=== PATIENT | male | born 1950 | race Caucasian/White ===

== ENCOUNTER → 2023-10-16 15:24 | Outpatient (REF) | payer MEDICARE, OTHER, SELFPAY | LOC: HWRAD 15:24 | PROVIDERS: ATTENDING PHYSICIAN Nurse Practitioner Family | DX: R10.9 Unspecified abdominal pain (principal); G89.29 Other chronic pain | CPT/HCPCS: 74176 ==

== ENCOUNTER 2024-06-21 22:38 | Emergency (ER) | payer MEDICARE, OTHER, SELFPAY ==
[2024-06-21 22:53] VITALS: BP 160/100
[2024-06-22 01:48] VITALS: BMI 27.8
[2024-06-22 01:49] VITALS: BP 142/89
[2024-06-22 02:18] LABS: % Basophils 0.2 % (0-2); % Eosinophils 2.9 % (0-6); % Immature Granulocytes 0.5 % (0-0.5); % Lymphocytes 21.3 % (20.5-51.1); % Monocytes 9.6 % (1.7-9.3); % Neutrophils 65.5 % (42.2-75.2); Absolute Eosinophils 0.2 10^3/uL (0-0.7); Absolute Lymphocytes 1.3 10^3/uL (1.2-3.4); Absolute Monocytes 0.6 10^3/uL (0.1-0.6); Absolute Neutrophils 3.9 10^3/uL (1.4-6.5); Hematocrit 38.5 % (39.0-52.0); Hemoglobin 13.3 g/dL (13.0-18.0); Mean Corp Hgb Conc. 34.5 g/dL (33.0-37.0); Mean Corpuscular Hgb 30.9 pg (27.0-31.0); Mean Corpuscular Volume 89.5 fL (80.0-94.0); Mean Platelet Volume 10.4 fL (7.4-10.4); Nucleated Red Blood Cells % 0 % (-); Platelet Count 140 10^3/uL (130-400); Red Cell Dist. Width 13.8 % (11.5-14.5); White Blood Cell Count 5.9 10^3/uL (4.8-10.8)
[2024-06-22 02:22] LABS: APTT 31.3 Sec (23.4-35.0); INR 0.97; PT 13.4 Sec (11.4-14.6)
[2024-06-22 02:26] LABS: ALT (SGPT) 30 U/L (0-50); AST (SGOT) 24 U/L (17-59); Albumin 4.2 g/dl (3.5-5.0); Alkaline Phosphatase 84 U/L (38-126); Blood Urea Nitrogen 20 mg/dl (9-20); Calcium 8.7 mg/dl (8.4-10.2); Carbon Dioxide 26 mmol/L (22-30); Chloride 105 mmol/L (98-107); Estimated Creatinine Clearance 111 ml/min; Glucose 125 mg/dl (70-99); Potassium 4.2 mmol/L (3.5-5.1); Sodium 140 mmol/L (135-145); Total Bilirubin 0.4 mg/dl (0.2-1.3); Total Protein 6.6 g/dl (6.3-8.2); eGFR > 60.00
--- NOTE | 2024-06-22 02:53 | ED.GENMED ---
History of Present Illness
General
Chief Complaint: DVT/Possible Blood Clot
Source: patient and family
Exam Limitations: none
Time Seen by Provider: 06/22/24 01:32
Nursing documentation reviewed up to this point in time: agreed with
History of Present Illness
History of Present Illness:
Pleasant 74-year-old male presents emergency room with right lower leg swelling and pain. Patient concerned for DVT since he just had surgery [facility]. Patient was receiving heparin until discharge. Shortly after discharge, his
swelling increased and his pain worsened. Denies fever, chills, nausea or vomiting. Denies chest pain or any shortness of breath.
Review of Systems
Review of Systems
Allergies reviewed?: Yes
Other source history: family
All Other Systems: ROS reviewed and negative except as documented in HPI and ROS
Constitutional: Reports no symptoms
EENT: Reports no symptoms
Respiratory: Reports no symptoms
Cardiac: Denies chest pain, palpitations or syncope
ABD/GI: Denies abdominal pain
: Denies flank pain
Musculoskeletal: Reports edema
Skin: Reports no symptoms
Neurological: Reports no symptoms
Endocrine: Reports no symptoms
Hematologic/Lymphatic: Reports no symptoms
Psychiatric: Reports anxiety
Phy Exam
General Physical Exam
General Presentation: well appearing and no apparent distress
General Skin: warm and dry
General Habitus: normal
General Mental: alert
General Hydration: appears well hydrated
ENT Exam
ENT Exam: EOMI, pharynx normal, neck supple and normocephalic
Eye Exam
Eye Exam: PERRL, cornea clear and conjunctiva normal
Cardiovascular Exam
Cardiovascular Exam: regular rate/rhythm, no edema, no murmur and normal peripheral pulses
Pulmonary Exam
Pulmonary Exam: lungs clear, no respiratory distress, no rales, no crackles, no rhonchi, no stridor, no wheezing and no cough
Gastrointestinal Exam
Gastrointestinal Exam: normal bowel sounds, non tender, soft, no organomegaly, no pulsatile mass and non distended
Neurological Exam
Neurological Exam: alert, oriented x3, no motor deficits and speech normal
Musculoskeletal Exam
Musculoskeletal Exam: full ROM, edema (Right leg slightly bigger than the left. Good pulses) and neuro vasc intact
Skin Exam
Skin Exam: normal color, warm/dry, no rash and no petechia
Psychiatric Exam
Psychiatric Exam: normal mood/affect
Course
Orders/Labs/Results
Orders:
Orders
06/21/24 22:59
Periph Venous Lwr Ext Rt US [US Periph Venous LOWER Ext RT] Urgent
Comment:
Reason For Exam: RLL SWELLING AND PAIN
06/22/24 02:05
Complete Blood Count/With Diff Urgent
Comprehensive Metabolic Panel Urgent
PTT Urgent
Prothrombin Time Urgent
06/22/24 02:52
Apixaban [Eliquis] 10 mg PO NOW STA
Abnormal Lab Results
06/22/24
02:05
RBC 4.30 L 10^6/uL
(4.70-6.10)
Hct 38.5 L %
(39.0-52.0)
Monocytes % 9.6 H %
(1.7-9.3)
Creatinine 0.5 L mg/dL
(0.7-1.3)
Glucose 125 H mg/dl
(70-99)
06/22/24 02:05
06/22/24 02:05
Vital Signs
Initial and Last Documented VS:
Initial Vital Signs
Temp Pulse Resp BP Pulse Ox
97.8 F 80 18 160/100 97
06/21/24 22:53 06/21/24 22:53 06/21/24 22:53 06/21/24 22:53 06/21/24 22:53
Last Documented Vital Signs
Temp Pulse Resp BP Pulse Ox
98.5 F 73 20 143/91 95
06/22/24 03:22 06/22/24 03:22 06/22/24 03:22 06/22/24 03:22 06/22/24 03:26
*Critical Care Note
Total Time (30-74mins, 75-104mins- exclusive of procedures): Not Applicable
Update Note
Update Note:
US RLE venous
IMPRESSION:
Nonocclusive thrombus within the popliteal vein extending into the paired posterior tibial and peroneal veins
ED Attending Note
-
Portions of this chart may have been created with voice recognition software.� Occasional wrong word or��sound alike� substitutions may have occurred due to the inherent limitations of voice recognition software.
Discharge Plan
Departure
Patient Disposition: Home (Routine Discharge)
Date of Disposition: 06/22/24
Time of Disposition: 02:55
Patient with high blood pressure during this ER visit?: Yes
Discharge Problem:
DVT (deep venous thrombosis)
Instructions: Deep Vein Thrombosis (Blood Clots in the Legs) (DC), BLOOD PRESSURE
Prescriptions:
New
Eliquis 5 mg tablet
10 mg PO DAILY Qty: 30 0RF
Rx Instructions:
Take 10mg BID for 7 days then followed by 5mg BID
Activity Restrictions/Additional Instructions:
Please follow-up with your family doctor as discussed.
It was a pleasure meeting you and taking part in your care. We hope for your continued healing and wellness.
Please read discharge instructions in their entirety. However, they are for general education and may not describe your exact diagnosis at discharge. Information on your ER visit and medical conditions were discussed with you along with appropriate
follow up information...
If indicated, please take your medications as instructed and indicated on discharge paperwork.
Please schedule a follow up appointment as directed. Call to schedule an appointment
Please return to the emergency department with ANY change in, persisting, or worsening of symptoms. If any of your symptoms do not improve, or persist, or become more severe within 6-12 hours, please return to the emergency department for further
care.
Please return to the emergency department if you develop a headache, neck pain/stiffness, fever greater than 100.4F, chest pain, shortness of breath, persistent nausea, vomiting, slurred speech, difficulty walking, numbness/tingling, weakness, signs
of infection or any other symptoms that are worrisome to you.
If you have any questions or concerns please do not hesitate to call the Hospital at or E-mail me directly at [email or web address]
Interventions
Interventions:
*Risk Screen - Suicide Last Done: 06/21/24 22:53
*General Assessment Last Done: 06/22/24 01:47
*Neglect/Abuse Screening Last Done: 06/21/24 22:53
ED- Fall Risk Assessment Last Done: 06/22/24 03:26
*ED COVID-19 Vaccine History Last Done: 06/22/24 01:47
*Nursing Disposition Last Done: 06/22/24 03:26
ED- Cardiac Assessment Last Done: 06/22/24 03:22
ED- Pulmonary Assessment Last Done: 06/22/24 03:22
ED-Peripheral Vascular Assessment Last Done: 06/22/24 03:22
ED-Skin Assessment Last Done: 06/22/24 03:22
Discharge Date and Time
Discharge Date/Time: 06/22/24 03:28
Print Language: FRISIAN
[2024-06-22] MEDS: ELIQUIS 10 MG PO (03:11)
[2024-06-22 03:22] VITALS: BP 143/91
== END 2024-06-22 03:28 | disposition home or self-care (01) ==
LOC: EMR 22:38
PROVIDERS: Emergency Medicine; EMERGENCY PHYSICIAN Student in an Organized Health Care Education/Training Program; FAMILY PHYSICIAN Nurse Practitioner Family
DX: I82.401 Acute embolism and thrombosis of unspecified deep veins of right lower extremity (principal); R22.41 Localized swelling, mass and lump, right lower limb; Z79.01 Long term (current) use of anticoagulants
CPT/HCPCS: 99284; 80053; 85025; 85610; 85730; 93971

== ENCOUNTER 2024-12-04 19:33 | Emergency (ER) | payer OTHER, MEDICARE, SELFPAY ==
[2024-12-04 19:42] VITALS: BP 169/100
[2024-12-04 20:05] LABS: % Basophils 0.1 % (0-2); % Eosinophils 1.6 % (0-6); % Immature Granulocytes 0.3 % (0-0.5); % Lymphocytes 25.1 % (20.5-51.1); % Monocytes 10.6 % (1.7-9.3); % Neutrophils 62.3 % (42.2-75.2); Absolute Eosinophils 0.1 10^3/uL (0-0.7); Absolute Lymphocytes 1.7 10^3/uL (1.2-3.4); Absolute Monocytes 0.7 10^3/uL (0.1-0.6); Absolute Neutrophils 4.2 10^3/uL (1.4-6.5); Hematocrit 44.1 % (39.0-52.0); Hemoglobin 15.4 g/dL (13.0-18.0); Mean Corp Hgb Conc. 34.9 g/dL (33.0-37.0); Mean Corpuscular Hgb 30.6 pg (27.0-31.0); Mean Corpuscular Volume 87.7 fL (80.0-94.0); Mean Platelet Volume 10.9 fL (7.4-10.4); Nucleated Red Blood Cells % 0 % (-); Platelet Count 176 10^3/uL (130-400); Red Blood Cell Count 5.03 10^6/uL (4.70-6.10); Red Cell Dist. Width 14.2 % (11.5-14.5); White Blood Cell Count 6.7 10^3/uL (4.8-10.8)
[2024-12-04 20:17] LABS: ALT (SGPT) 26 U/L (0-50); AST (SGOT) 25 U/L (17-59); Albumin 5.2 g/dl (3.5-5.0); Alkaline Phosphatase 81 U/L (38-126); Blood Urea Nitrogen 20 mg/dl (9-20); Calcium 9.9 mg/dl (8.4-10.2); Carbon Dioxide 24 mmol/L (22-30); Chloride 113 mmol/L (98-107); Glucose 116 mg/dl (70-99); Lipase 114 U/L (23-300); Potassium 4.2 mmol/L (3.5-5.1); Sodium 148 mmol/L (135-145); Total Protein 8.2 g/dl (6.3-8.2); eGFR > 60.00
--- NOTE | 2024-12-04 21:04 | ED.GENMED ---
History of Present Illness
General
Chief Complaint: Abdominal Pain
Source: patient and family
Exam Limitations: none
Time Seen by Provider: 12/04/24 20:52
History of Present Illness
History of Present Illness:
74yoM with a history of glioblastoma (on chemo, cycle recently finished, follows with Jose), hypertension, DVT on Eliquis, and kidney stones presenting with several family members for evaluation of groin pain. Patient reports developing pain in his
right groin several hours ago. He was lifting something heavy prior to his pain starting. He has a history of kidney stones and this feels similar. He denies any difficulty urinating, hematuria, scrotal pain, vomiting, fevers. Patient also has a
history of bilateral hernia repairs 2 years ago.
Phy Exam
General Physical Exam
General Presentation: well appearing and no apparent distress
General Skin: warm and dry
General Habitus: normal
General Mental: alert
ENT Exam
ENT Exam: normocephalic
Pulmonary Exam
Pulmonary Exam: no respiratory distress
Gastrointestinal Exam
Gastrointestinal Exam: soft, non distended, no cva tenderness and other (+Focal tenderness to RLQ. Abdomen soft, non-distended. No rebound or guarding. No palpable hernia.)
Genitourinary Exam Male
Exam Male: normal testicular exam, no testicular swelling and no testicular tenderness
Neurological Exam
Neurological Exam: alert
Abilio Coma Scale
Eye Opening: Spontaneous
Verbal Response: Oriented
Motor Response: Obeys Commands
GCS Total Score: 15
Skin Exam
Skin Exam: normal color and warm/dry
Psychiatric Exam
Psychiatric Exam: normal mood/affect
Course
Orders/Labs/Results
Orders:
Orders
12/04/24 19:45
IV Insert/Care/Rem.- Treatment PRN
12/04/24 19:53
Complete Blood Count/With Diff Urgent
Comprehensive Metabolic Panel Urgent
Lipase Urgent
12/04/24 21:03
CT Abd/pelvis W Iv Cont Urgent
Comment:
Reason For Exam: RLQ pain/R groin pain
0.9% Sodium Chloride 1000 ml [Nss] 1,000 ml IV BOLUS
HYDROmorphone [Dilaudid] 0.5 mg IV NOW STA
12/04/24 21:12
Ondansetron Injectable [Zofran] 4 mg .ROUTE .STK-MED ONE
12/04/24 21:13
Ondansetron Injectable [Zofran] 4 mg IV NOW STA
12/04/24 23:06
Urinalysis Reflex To Culture Urgent
Date Specimen was Collected: 12/04/24
Time Specimen was Collected: 19:45
Urine Microscopic Reflex Cult Urgent
12/04/24 23:09
Tamsulosin [Flomax] 0.4 mg PO NOW STA
Abnormal Lab Results
12/04/24 12/04/24
19:53 23:06
MPV 10.9 H fL
(7.4-10.4)
Absolute Monos (auto) 0.7 H 10^3/uL
(0.1-0.6)
Monocytes % 10.6 H %
(1.7-9.3)
Sodium 148 H mmol/L
(135-145)
Chloride 113 H mmol/L
(98-107)
Glucose 116 H mg/dl
(70-99)
Albumin 5.2 H g/dl
(3.5-5.0)
Ur Occult Blood Reflex 3+ A
(Negative)
Urine RBC 3-6 A /HPF
(0-2)
Urine Bacteria (Reflex) Few A
(Negative)
12/04/24 19:53
12/04/24 19:53
Vital Signs
Initial and Last Documented VS:
Initial Vital Signs
Temp Pulse Resp BP Pulse Ox
98.1 F 78 19 169/100 96
12/04/24 19:42 12/04/24 19:42 12/04/24 19:42 12/04/24 19:42 12/04/24 19:42
Last Documented Vital Signs
Temp Pulse Resp BP Pulse Ox
98.1 F 75 16 146/93 95
12/04/24 19:42 12/04/24 23:34 12/04/24 23:34 12/04/24 23:34 12/04/24 23:34
MDM/Problems Addressed
Differential Diagnosis Includes:
74yoM here with R groin pain that started a few hours ago. Hx of kidney stones and this feels similar. He is hypertensive with otherwise stable vitals. He is non-toxic appearing. There is tenderness to the RLQ. No testicular tenderness or scrotal
swelling. No palpable hernia noted. Differential diagnosis includes but is not limited to: Kidney stone, musculoskeletal, hernia, appendicitis
Initial ED plan: Check CBC, CMP, UA, and CT abdomen without contrast. IV Dilaudid, Zofran, and fluid bolus for symptoms.
*Pulse Oximetry
Patient hypoxic: no (95%)
*Critical Care Note
Total Time (30-74mins, 75-104mins- exclusive of procedures): Not Applicable
Update Note
Update Note:
CT shows a 6 mm R UVJ stone with hydronephrosis. Indeterminate renal and hepatic lesion also seen for which MRI is recommended. This was discussed with daughter who states patient is aware of this. He had an MRI last month at [place] and everything
looked okay. Renal function normal. No signs of infection on urinalysis. Patient is pain-free on reassessment. No indication for hospitalization. Supportive care discussed including hydration, urine straining, and Flomax. Prescriptions also
provided for oxycodone and Zofran. He was advised to call urology tomorrow to schedule a follow-up appointment. Strict ED return precautions reviewed. Patient discharged in stable condition.
ED Attending Note
-
Portions of this chart may have been created with voice recognition software.� Occasional wrong word or��sound alike� substitutions may have occurred due to the inherent limitations of voice recognition software.
Discharge Plan
Departure
Patient Disposition: Home (Routine Discharge)
Date of Disposition: 12/04/24
Time of Disposition: 23:28
Patient with high blood pressure during this ER visit?: Yes
Discharge Problem:
Calculus of distal right ureter, Kidney lesion, Lesion of liver
Instructions: Kidney Stones (DC), How to Strain Your Urine
Prescriptions:
New
oxycodone 5 mg tablet
5 mg PO Q6H PRN (Reason: Pain) Qty: 12 0RF
tamsulosin [Flomax] 0.4 mg capsule
0.4 mg PO HS Qty: 7 0RF
ondansetron 4 mg tablet,disintegrating
4 mg PO Q6H PRN (Reason: nausea and vomiting) Qty: 20 0RF
No Action
Eliquis 5 mg tablet
10 mg PO DAILY Qty: 30 0RF
Rx Instructions:
Take 10mg BID for 7 days then followed by 5mg BID
Referrals:
Luis Armando Wayne MD [Active, Urology]
Kesha Hubbard MD [Family Provider]
Activity Restrictions/Additional Instructions:
Drink plenty of fluids. Strain your urine and take Flomax until stone has passed.
Take Tylenol as needed for mild pain and oxycodone as needed for severe pain. Take Zofran as needed for nausea.
Please call tomorrow morning to schedule a follow-up with urology. Return to the ER with any worsening symptoms including fevers or uncontrolled pain.
Interventions
Interventions:
*Risk Screen - Suicide Last Done: 12/04/24 19:42
*General Assessment Last Done: 12/04/24 21:04
*Neglect/Abuse Screening Last Done: 12/04/24 19:42
*ED- Fall Risk Assessment Last Done: 12/04/24 21:04
*ED COVID-19 Vaccine History Last Done: 12/04/24 21:04
*Nursing Disposition Last Done: 12/04/24 23:39
IA-Zkaejl-Ierenifkpc Assessment Last Done: 12/04/24 21:05
Discharge Date and Time
Discharge Date/Time: 12/04/24 23:40
Print Language: [place] ISLAND[place]
[2024-12-04 21:19] VITALS: BMI 28.4
[2024-12-04] MEDS: NSS 1000 IV (21:19)
[2024-12-04] MEDS: ZOFRAN 4 MG IV (21:20)
[2024-12-04] MEDS: DILAUDID 0.5 MG IV (21:20)
[2024-12-04 23:11] LABS: Urine Albumin Negative (Neg - Trace); Urine Bilirubin Negative (Negative); Urine Character Clear (Clear); Urine Color Yellow; Urine Glucose Negative (Negative); Urine Ketone Negative (Negative); Urine Leukocyte Negative (Negative); Urine Nitrite Negative (Negative); Urine Occult Blood 3+ (Negative); Urine Urobilinogen Negative (Neg - 1+); Urine pH 6.5 (5.0-9.0)
[2024-12-04 23:23] LABS: Urine Bacteria Few (Negative); Urine Squamous Cell 0-2 /LPF (Few); Urine White Cell 0-2 /HPF (0-5)
[2024-12-04] MEDS: FLOMAX 0.4 MG PO (23:31)
[2024-12-04 23:34] VITALS: BP 146/93
== END 2024-12-04 23:40 | disposition home or self-care (01) ==
LOC: EMR 19:33
PROVIDERS: Emergency Medicine; EMERGENCY PHYSICIAN Emergency Medicine; FAMILY PHYSICIAN Specialist
DX: N13.2 Hydronephrosis with renal and ureteral calculous obstruction (principal); N28.89 Other specified disorders of kidney and ureter; K76.9 Liver disease, unspecified; C71.9 Malignant neoplasm of brain, unspecified; I10 Essential (primary) hypertension; Z79.01 Long term (current) use of anticoagulants; Z87.442 Personal history of urinary calculi
CPT/HCPCS: 96374; 96375; 96361; 99284; 74177; 80053; 81003; 81015; 83690; 85025; Q9967